=== PATIENT | male | born 1990 | race Caucasian/White ===

== ENCOUNTER 2020-07-07 14:55 | Outpatient (REF) | payer OTHER, SELFPAY | END 2020-07-07 14:56 | disposition home or self-care (01) | LOC: HO.LAB 14:55 | PROVIDERS: Visit Provider Internal Medicine | DX: Z20.822 Contact with and (suspected) exposure to COVID-19 (principal) | CPT/HCPCS: 36415; C9803; U0003 ==

== ENCOUNTER 2020-07-14 12:02 | Outpatient (REF) | payer OTHER, SELFPAY | END 2020-07-14 12:03 | disposition home or self-care (01) | LOC: HO.LAB 12:02 | PROVIDERS: Visit Provider Internal Medicine | DX: Z20.822 Contact with and (suspected) exposure to COVID-19 (principal) | CPT/HCPCS: 36415; C9803; U0003 ==

== ENCOUNTER 2020-09-21 11:53 | Outpatient (REF) | payer OTHER, SELFPAY ==
[2020-09-21 15:59] LABS: SARS COV2 PCR INHOUSE NEGATIVE (Negative)
== END 2020-09-21 11:54 | disposition home or self-care (01) ==
LOC: HO.LAB 11:53
PROVIDERS: Visit Provider Internal Medicine
DX: Z20.822 Contact with and (suspected) exposure to COVID-19 (principal)
CPT/HCPCS: C9803; U0003

== ENCOUNTER 2022-10-11 17:39 | Emergency (ER) | payer OTHER, SELFPAY ==
--- NOTE | ~2022-10-11 | XR_ITS ---
EXAMINATION: XR CHEST CLINICAL INFORMATION: Chest pain. COMPARISON: None available. TECHNIQUE: Frontal view of the chest was obtained. FINDINGS: No significant abnormality is noted involving the heart, lungs, mediastinum, bony thorax or soft tissues. XR/XR chest 1V IMPRESSION: Unremarkable examination.
--- NOTE | 2022-10-11 17:45 | ECG_ITS ---
Test Reason : chest discomfort Blood Pressure : / mmHG Vent. Rate : 095 BPM Atrial Rate : 095 BPM P-R Int : 160 ms QRS Dur : 108 ms QT Int : 372 ms P-R-T Axes : 074 -21 015 degrees QTc Int : 467 ms Normal sinus rhythm Normal ECG No previous ECGs available Referred By: Generic ED Physician Electronically Signed By:Darell Duarte
[2022-10-11 19:24] VITALS: BP 144/80; PULSE 75; RESP 16; TEMP 37.4; O2SAT 99; BMI 40.0
--- NOTE | 2022-10-11 19:27 | ED_ITS ---
HPI - Chest Pain General Chief Complaint: Chest Pain Stated Complaint: chest discomfort/ anxiety Time Seen by Provider: 10/11/22 20:59 Related Data Allergies Allergy/AdvReac Type Severity Reaction Status Date / Time amoxicillin Allergy Unknown Verified 10/11/22 19:23 FORMERLY [facility], [facility] Social History Social History Smoked in Last 30 Days: No Use of substances other than those prescribed or required for medical reasons: Yes Substance Use Type: Marijuana Advance Directives: No Advance Directives Information Provided: No Physical Exam Vital Signs: Vital Signs: Last Vital Signs Temp 98.5 F 10/11/22 21:53 Pulse 75 10/11/22 21:53 Resp 15 10/11/22 21:53 BP 116/75 10/11/22 21:53 Pulse Ox 98 10/11/22 21:53 O2 Del Method Room Air 10/11/22 21:53 BMI result Body Mass Index 40.0 Course Course Course Narrative: RME: 32yo m w/no sig PMHx c/o chest discomfort w/ L arm parathesias that occurred yesterday and resolved with hydroxyzine. Admit symptoms recurred today, called PCP wound was instructed to come to the ED. denies CP at present Appears mildly anxious. Vital signs stable EKG, labs, CXR ordered Full HPI, ROS and PE to be performed by primary ED provider. Medical Decision Making Lab Data 10/11/22 19:38 10/11/22 19:38 Labs: Lab Results 10/11/22 10/11/22 10/11/22 Range/Units 19:38 19:38 19:38 WBC 8.6 (4.8-10.8) X10*3/uL RBC 5.87 H (4.60-5.80) X10*6/uL Hgb 16.2 (14.0-18.0) g/dl Hct 47.8 (42.0-52.0) % MCV 81.4 (80.0-98.0) fL MCH 27.6 (27.0-33.0) pg MCHC 33.9 (31.0-36.0) g/dl RDW 13.2 (11.0-16.0) % Plt Count 296 (160-400) X10*3/uL MPV 9.1 L (9.4-12.4) fL Immature Gran % (Auto) 0.4 (0.0-0.4) % Neut % (Auto) 70.1 (45-73) % Lymph % (Auto) 22.6 (20-40) % [place] % (Auto) 5.7 (2-11) % Eos % (Auto) 0.8 (0-4) % Baso % (Auto) 0.4 (0-2) % Lymph # (Auto) 1.9 (1.2-4.9) X10*3/uL [place] # (Auto) 0.5 (0.1-1.2) X10*3/uL Eos # (Auto) 0.1 (0.0-0.4) X10*3/uL Baso # (Auto) 0.0 (0.0-0.2) X10*3/uL Abs Immat Gran (auto) 0.03 (0.00-0.03) X10*3/uL Absolute Neuts (auto) 6.0 (2.0-8.3) x10*3/uL Absolute Nucleated RBC 0.000 (0.0-0.012) X10*3/uL Nucleated RBC % (auto) 0.0 (0.0-0.2) /100WBC Sodium 139 (135-145) mmol/L Potassium 3.8 (3.3-5.1) mmol/L Chloride 102 (96-108) mmol/L Carbon Dioxide 27 (22-29) mmol/L Anion Gap 14 (12-20) BUN 13 (9-16) mg/dL Creatinine 1.19 (0.5-1.4) mg/dL Estim Creat Clear Calc 103.9 Estimated GFR > 60 Random Glucose 92 (60-115) mg/dL Calcium 10.3 H (8.4-10.2) mg/dL Total Bilirubin 0.6 (0.0-1.0) mg/dL Direct Bilirubin 0.2 (0.0-0.5) mg/dL AST 29 (5-37) U/L ALT 38 (0-40) U/L Alkaline Phosphatase 58 (39-117) U/L Troponin I High Sens < 2.7 (<3.5-35.0) ng/L Total Protein 7.7 (6.5-8.0) g/dL Albumin 5.0 (3.5-5.0) g/dL Discharge Plan Discharge Clinical Impression: Chest pain Patient Disposition: Home, Self-Care Instructions: Chest Pain (DC) Referrals: Darell Duarte MD [Physician] - 10/13/22 Interventions: ED Discharge Assessment Last Done: 10/11/22 22:18 Discharge Date/Time: 10/11/22 22:19
[2022-10-11 19:45] LABS: MANUAL DIFF FLAG NO
[2022-10-11 19:47] LABS: Basophils Percent Auto 0.4 % (0-2); Eosinophils Absolute Auto 0.1 X10*3/uL (0.0-0.4); Eosinophils Percent Auto 0.8 % (0-4); Hematocrit 47.8 % (42.0-52.0); Hemoglobin 16.2 g/dl (14.0-18.0); Imm Gran Abs Auto 0.03 X10*3/uL (0.00-0.03); Imm Gran Pct Auto 0.4 % (0.0-0.4); Lymphocytes Absolute Auto 1.9 X10*3/uL (1.2-4.9); Lymphocytes Percent Auto 22.6 % (20-40); Mean Corpuscular HGB Conc 33.9 g/dl (31.0-36.0); Mean Corpuscular Hemoglobin 27.6 pg (27.0-33.0); Mean Corpuscular Volume 81.4 fL (80.0-98.0); Mean Platelet Volume 9.1 fL (9.4-12.4); Monocytes Absolute Auto 0.5 X10*3/uL (0.1-1.2); Monocytes Percent Auto 5.7 % (2-11); Neutrophils Percent Auto 70.1 % (45-73); Platelet Count 296 X10*3/uL (160-400); Red Blood Count 5.87 X10*6/uL (4.60-5.80); Red Cell Distribution Width 13.2 % (11.0-16.0); White Blood Count 8.6 X10*3/uL (4.8-10.8)
[2022-10-11 20:05] LABS: Alanine Aminotransferase 38 U/L (0-40); Alkaline Phosphatase 58 U/L (39-117); Anion Gap 14 (12-20); Aspartate Amino Transferase 29 U/L (5-37); Bilirubin Direct 0.2 mg/dL (0.0-0.5); Bilirubin Total 0.6 mg/dL (0.0-1.0); Blood Urea Nitrogen 13 mg/dL (9-16); Calcium 10.3 mg/dL (8.4-10.2); Carbon Dioxide 27 mmol/L (22-29); Chloride 102 mmol/L (96-108); Creatinine Clr Calc Pharmacy 103.9; Estimated Glomerular Filt Rate > 60; Glucose Random 92 mg/dL (60-115); Potassium 3.8 mmol/L (3.3-5.1); Sodium 139 mmol/L (135-145); Total Protein 7.7 g/dL (6.5-8.0)
[2022-10-11 20:12] LABS: Troponin-I High Sensitivity < 2.7 ng/L (<3.5-35.0)
--- NOTE | 2022-10-11 21:22 | PC.NURSE ---
this rn assumed care of pt @ 2109. pt placed on quality assurance monitor chassis. iv placed. 20 g R AC. pt tolerated well. pt resting comfortably on stretcher at this time. denies chest pain at this time. pt awaiting to be seen by ed provider
--- NOTE | 2022-10-11 21:43 | ED.CHESTPAIN ---
HPI - Chest Pain General Chief Complaint: Chest Pain Stated Complaint: chest discomfort/ anxiety Time Seen by Provider: 10/11/22 20:59 History of Present Illness HPI narrative: Patient is a 32-year-old male with a history of anxiety panic attack in the past. Patient had a history of panic attack and that feel exactly the same. The pain was mid chest. It is associated with anxiety. Associated with shortness of breath. Subsided after approximately 1 hour. Patient denies any history of diabetes, hypertension, high cholesterol, smoking, [place]. He is from home. No leg swelling. No history DVT no family history of DVT no history of PE. No travel. Patient denies any diaphoresis. Related Data Allergies Allergy/AdvReac Type Severity Reaction Status Date / Time amoxicillin Allergy Unknown Verified 10/11/22 19:23 Review of Systems Review of Systems: No fever no chills positive chest pain Yes all other systems are reviewed and are negative [facility] Past Medical History Attestation statement: The following information was validated with the patient. Social History Social History Smoked in Last 30 Days: No Use of substances other than those prescribed or required for medical reasons: Yes Substance Use Type: Marijuana Advance Directives: No Advance Directives Information Provided: No Physical Exam Vital Signs: Vital Signs: Last Vital Signs Temp 99.4 F 10/11/22 19:24 Pulse 75 10/11/22 19:24 Resp 16 10/11/22 19:24 BP 144/80 H 10/11/22 19:24 Pulse Ox 99 10/11/22 19:24 O2 Del Method Room Air 10/11/22 19:24 BMI result Body Mass Index 40.0 Appearance: Alert. Oriented X3. No acute distress. Eyes: Pupils equal, round and reactive to light. ENT: Pharynx normal. Neck: Normal inspection. Neck supple. No lymph nodes noted. No crepitus CVS: Normal heart rate and rhythm. Pulses normal. Normal S1 and S2 Respiratory: No respiratory distress. Breath sounds normal. No Wheezing. No rales Abdomen: Soft and nontender. No rigidity. No distention. good BS x4 Skin: Skin warm and dry. Normal skin color. Normal skin turgor. Extremities: No lower extremity edema. Neurovascular intact to all extremities. No Lacerations. No Rash Neuro: Oriented X 3. No motor deficit. No sensory deficit. Moving all extermities. No slurred speech Medical Decision Making Medical Decision Making [facility] Narrative: Patient's symptoms very similar to previous bouts of panic attack. His symptom has since resolved. Had not had a recurrence today. Patient's EKG by my interpretation showed a heart rate of 100 IA QRS QT within normal limits is no acute ST segment elevation. Patient is in no distress. Troponin is negative. Patient is 32 years old with no significant cardiac risk factor. His heart score is less than 3. He has no risk factors of PE. Patient's chest x-ray showed no evidence of pneumonia pneumothorax. Will discharge patient home follow up with Cardiology on an outpatient basis Differential Diagnosis Differential Diagnoses: The differential diagnosis associated with the presentation includes ACS, panic attack, pneumonia, pneumothorax, rib fractures, pneumonia Lab Data [facility] Lab Attestation statement: I reviewed the patient's lab results. 10/11/22 19:38 10/11/22 19:38 Labs: Lab Results 10/11/22 10/11/22 10/11/22 Range/Units 19:38 19:38 19:38 WBC 8.6 (4.8-10.8) X10*3/uL RBC 5.87 H (4.60-5.80) X10*6/uL Hgb 16.2 (14.0-18.0) g/dl Hct 47.8 (42.0-52.0) % MCV 81.4 (80.0-98.0) fL MCH 27.6 (27.0-33.0) pg MCHC 33.9 (31.0-36.0) g/dl RDW 13.2 (11.0-16.0) % Plt Count 296 (160-400) X10*3/uL MPV 9.1 L (9.4-12.4) fL Immature Gran % (Auto) 0.4 (0.0-0.4) % Neut % (Auto) 70.1 (45-73) % Lymph % (Auto) 22.6 (20-40) % [place] % (Auto) 5.7 (2-11) % Eos % (Auto) 0.8 (0-4) % Baso % (Auto) 0.4 (0-2) % Lymph # (Auto) 1.9 (1.2-4.9) X10*3/uL [place] # (Auto) 0.5 (0.1-1.2) X10*3/uL Eos # (Auto) 0.1 (0.0-0.4) X10*3/uL Baso # (Auto) 0.0 (0.0-0.2) X10*3/uL Abs Immat Gran (auto) 0.03 (0.00-0.03) X10*3/uL Absolute Neuts (auto) 6.0 (2.0-8.3) x10*3/uL Absolute Nucleated RBC 0.000 (0.0-0.012) X10*3/uL Nucleated RBC % (auto) 0.0 (0.0-0.2) /100WBC Sodium 139 (135-145) mmol/L Potassium 3.8 (3.3-5.1) mmol/L Chloride 102 (96-108) mmol/L Carbon Dioxide 27 (22-29) mmol/L Anion Gap 14 (12-20) BUN 13 (9-16) mg/dL Creatinine 1.19 (0.5-1.4) mg/dL Estim Creat Clear Calc 103.9 Estimated GFR > 60 Random Glucose 92 (60-115) mg/dL Calcium 10.3 H (8.4-10.2) mg/dL Total Bilirubin 0.6 (0.0-1.0) mg/dL Direct Bilirubin 0.2 (0.0-0.5) mg/dL AST 29 (5-37) U/L ALT 38 (0-40) U/L Alkaline Phosphatase 58 (39-117) U/L Troponin I High Sens < 2.7 (<3.5-35.0) ng/L Total Protein 7.7 (6.5-8.0) g/dL Albumin 5.0 (3.5-5.0) g/dL Independent Interpretation I performed an independent interpretation of an: EKG Interpretation: My interpretation patient's EKG showed a sinus rhythm heart rate is 80 IA QRS QT within normal limits is no acute ST Chronic Conditions Panic attack Discharge Plan Discharge Clinical Impression: Chest pain Patient Disposition: Home, Self-Care Instructions: Chest Pain (DC) Referrals: Darell Duarte MD [Physician] - 10/13/22
[2022-10-11 21:53] VITALS: BP 116/75; PULSE 75; RESP 15; TEMP 36.9; O2SAT 98
== END 2022-10-11 22:19 | disposition home or self-care (01) ==
PROVIDERS: Physician Assistant; Emergency Provider Emergency Medicine Emergency Medical Services; PCP Internal Medicine
DX: R07.9 Chest pain, unspecified (principal); F41.9 Anxiety disorder, unspecified; F12.90 Cannabis use, unspecified, uncomplicated
CPT/HCPCS: 36415; 71045; 80048; 80076; 84484; 85025; 93005; 99283; 99285